=== PATIENT | female | born 1960 | race Caucasian/White ===

== ENCOUNTER 2019-08-13 12:02 | Inpatient (IN) | payer MEDICAID, OTHER ==
[~2019-08-13] VITALS: Ht 160 cm; Wt 69.0 kg
[~2019-08-13 12:02] MED LIST: ALPR0.255; AMLO10TA7 PO; ASPI-556; DYAZIDE
[2019-08-13] MEDS ORDERED: LORA-999 PO (13:09)
[2019-08-13] MEDS ORDERED: AMLO2.5T4 PO (13:09)
[2019-08-13 13:44] LABS: AMPHET/METH SCREEN,URINE NEGATIVE (NEGATIVE); BARBITURATE SCREEN, URINE NEGATIVE (NEGATIVE); BENZODIAZEPINES SCREEN,URINE NEGATIVE (NEGATIVE); CANNABINOID SCREEN,URINE POSITIVE (NEGATIVE); COCAINE SCREEN,URINE NEGATIVE (NEGATIVE); METHADONE SCREEN, URINE NEGATIVE (NEGATIVE); OPIATE SCREEN,URINE NEGATIVE (NEGATIVE)
[2019-08-13 13:45] LABS: PHENCYCLIDINE SCREEN,URINE NEGATIVE (NEGATIVE)
[2019-08-13] MEDS ORDERED: HydrOXYzine PAMOATE 50 MG CAPSULE PO ONE (13:45)
[2019-08-13 13:46] LABS: EOSINOPHILS % (AUTO) 0.4 % (1.0-6.0); HEMATOCRIT 42.9 % (36-46); HEMOGLOBIN 15.2 g/dL (12.0-16.0); LYMPHOCYTES # (AUTO) 1.6 K/uL (1.0-4.8); LYMPHOCYTES % (AUTO) 15.5 % (22.0-44.0); MEAN CORPUSCULAR HEMOGLOBIN 33.8 pg (26.0-34.0); MEAN CORPUSCULAR HGB CONC 35.5 G/dL (31.0-37.0); MEAN CORPUSCULAR VOLUME 95 fL (80-100); MONOCYTES # (AUTO) 0.6 K/uL (0.1-1.0); MONOCYTES % (AUTO) 5.8 % (2.0-9.0); NEUTROPHILS # (AUTO) 7.8 K/uL (1.8-7.7); NEUTROPHILS % (AUTO) 77.3 % (40.0-70.0); PLATELET COUNT (AUTO) 279 K/uL (150-450); RED CELL DISTRIBUTION WIDTH 12.8 % (11.5-14.5)
[2019-08-13 14:05] LABS: ALBUMIN 3.3 g/dL (3.4-5.0); BILIRUBIN,TOTAL 1.2 mg/dL (0.1-1.0); CALCIUM, TOTAL 8.8 mg/dL (8.8-10.5); CREATININE 0.95 mg/dL (0.60-1.30); TOTAL PROTEIN, SERUM 7.1 g/dL (6.4-8.2)
[2019-08-13 14:13] LABS: POTASSIUM 2.9 mmol/L (3.5-5.1)
[2019-08-13] MEDS: POTASSIUM CHLORIDE 20 MEQ ER TABLET PO ONE ×2 (14:27→15:33)
[2019-08-13] MEDS ORDERED: LORazepam 2 MG TABLET PO ONE (15:00)
[2019-08-13] MEDS ORDERED: HALOPERIDOL 5 MG TABLET PO PRN (16:00)
[2019-08-13 18:29] VITALS: BP 104/71
[2019-08-13] MEDS ORDERED: OMEPRAZOLE 20 MG CAPSULE PO PRN (19:45)
[2019-08-13] MEDS ORDERED: ACETAMINOPHEN 325 MG TABLET PO PRN (19:45)
[2019-08-13] MEDS ORDERED: BENZOCAINE/MENTHOL LOZENGE MM PRN (19:45)
[2019-08-13] MEDS ORDERED: ONDANSETRON HCL 4 MG TABLET PO PRN (19:45)
[2019-08-13] MEDS ORDERED: LOPERAMIDE HCL 2 MG CAPSULE PO PRN (19:45)
[2019-08-13] MEDS ORDERED: MAG HYDROX/AL HYDROX/SIMETH ES 30 ML SUSPENSION UDCUP PO PRN (19:45)
[2019-08-13] MEDS ORDERED: DOCUSATE SODIUM 100 MG CAPSULE PO PRN (19:45)
[2019-08-13] MEDS ORDERED: IBUPROFEN 600 MG TABLET PO PRN (19:45)
[2019-08-13] MEDS ORDERED: BACITRACIN 28.4 GM OINTMENT TP PRN (19:45)
[2019-08-13] MEDS ORDERED: ALBUTEROL SULFATE HFA 90 MCG/PUFF 8 GM INHALER IH PRN (19:45)
[2019-08-13] MEDS ORDERED: CloNIDine HCL 0.1 MG TABLET PO PRN (19:45)
[2019-08-13] MEDS ORDERED: PETROLATUM,WHITE 28 GM JELLY TP PRN (19:45)
[2019-08-13] MEDS ORDERED: MAGNESIUM HYDROXIDE SUSPENSION 30 ML UDCUP PO PRN (19:45)
[2019-08-13] MEDS: LORazepam 2 MG TABLET PO PRN (23:25)
[2019-08-13] MEDS: ZOLPIDEM TARTRATE 10 MG TABLET PO PRN (23:25)
[2019-08-14 07:01] LABS: CHOL/HDL RATIO 1.6 (3.9-5.7); POTASSIUM 3.5 mmol/L (3.5-5.1)
[2019-08-14] MEDS ORDERED: INFLUENZA VIRUS VACCINE QVS 2019-20 (3YR+)/PF 60 MCG/0.5 ML SYRINGE IM ONE (07:15)
[2019-08-14] MEDS ORDERED: PNEUMOCOCCAL VACCINE POLYVALENT 0.5 ML VIAL [PPSV23] IM ONE (07:15)
[2019-08-14] MEDS: AmLODIPine BESYLATE 10 MG TABLET PO SCH (08:42)
[2019-08-14] MEDS: LORazepam 2 MG TABLET PO PRN ×2 (08:44→18:24)
[2019-08-14 09:27] VITALS: BP 116/77
[2019-08-14 16:00] VITALS: BP 96/64
[2019-08-14] MEDS: QUEtiapine FUMARATE 200 MG TABLET PO SCH (20:31)
[2019-08-15 08:13] VITALS: BP 93/63
[2019-08-15] MEDS: AmLODIPine BESYLATE 10 MG TABLET PO SCH (08:52)
[2019-08-15 12:25] VITALS: BP 107/84
[2019-08-15] MEDS: LORazepam 2 MG TABLET PO PRN (12:30)
[2019-08-15] MEDS: SODIUM CHLORIDE 1 GM TABLET PO SCH ×2 (13:19→20:00)
[2019-08-15] MEDS: QUEtiapine FUMARATE 200 MG TABLET PO SCH (20:00)
[2019-08-15] MEDS: ZOLPIDEM TARTRATE 10 MG TABLET PO PRN (23:15)
[2019-08-16] MEDS: SODIUM CHLORIDE 1 GM TABLET PO SCH ×3 (08:43→16:47)
[2019-08-16] MEDS: AmLODIPine BESYLATE 10 MG TABLET PO SCH (08:43)
[2019-08-16 09:58] VITALS: BP 104/74
[2019-08-16] MEDS: LORazepam 2 MG TABLET PO PRN ×2 (11:26→16:50)
[2019-08-16 19:50] VITALS: BP 119/84
[2019-08-16] MEDS: QUEtiapine FUMARATE 200 MG TABLET PO SCH (20:25)
[2019-08-17] MEDS: LORazepam 2 MG TABLET PO PRN ×2 (08:40→16:53)
[2019-08-17] MEDS: SODIUM CHLORIDE 1 GM TABLET PO SCH (08:40)
[2019-08-17] MEDS: AmLODIPine BESYLATE 10 MG TABLET PO SCH (08:40)
[2019-08-17 10:13] VITALS: BP 118/78
[2019-08-17 16:54] VITALS: BP 106/54
[2019-08-17] MEDS: QUEtiapine FUMARATE 200 MG TABLET PO SCH (20:05)
[2019-08-18 06:19] LABS: BAND NEUTROPHILS % (MANUAL) 0 % (0-5)
[2019-08-18 06:20] LABS: HEMATOCRIT 39.9 % (36-46); HEMOGLOBIN 13.7 g/dL (12.0-16.0); MEAN CORPUSCULAR HEMOGLOBIN 33.7 pg (26.0-34.0); MEAN CORPUSCULAR HGB CONC 34.3 G/dL (31.0-37.0); MEAN CORPUSCULAR VOLUME 98 fL (80-100); PLATELET COUNT (AUTO) 266 K/uL (150-450); RED BLOOD CELL COUNT(AUTO) 4.07 MIL/uL (4.00-5.20); RED CELL DISTRIBUTION WIDTH 13.5 % (11.5-14.5)
[2019-08-18 06:33] LABS: ANION GAP 8 mmol/L (8-16); CALCIUM, TOTAL 8.6 mg/dL (8.8-10.5); CARBON DIOXIDE 25 mmol/L (22-29); CHLORIDE 106 mmol/L (98-107); CREATININE 0.84 mg/dL (0.60-1.30); GLOMERULAR FILTR. RATE CALC > 60 mL/min (>60); GLUCOSE,RANDOM 92 mg/dL (70-110); POTASSIUM 3.9 mmol/L (3.5-5.1); SODIUM SERUM 139 mmol/L (136-145); UREA NITROGEN, BLOOD 13 mg/dL (7-18)
[2019-08-18 08:10] LABS: EOSINOPHILS % (MANUAL) 1 % (1-6); LYMPHOCYTES % (MANUAL) 18 % (22-44); MONOCYTES % (MANUAL) 7 % (2-9); SEGMENTED NEUTROPHILS % 74 % (40-70)
[2019-08-18 08:50] VITALS: BP 127/66
[2019-08-18] MEDS: AmLODIPine BESYLATE 10 MG TABLET PO SCH (08:50)
[2019-08-18] MEDS: LORazepam 2 MG TABLET PO PRN ×2 (09:01→13:05)
[2019-08-18] MEDS ORDERED: QUET200T PO (13:47)
== END 2019-08-18 14:35 | disposition home or self-care (01) | DRG 754 ==
LOC: EMS 12:03 → 3EC 16:58 → 3EI 08-15 15:36
PROVIDERS: ADMIT Psychiatry & Neurology Psychiatry; ATTEND Psychiatry & Neurology Psychiatry
DX: F32.9 Major depressive disorder, single episode, unspecified (principal); R45.851 Suicidal ideations; E87.6 Hypokalemia; F12.90 Cannabis use, unspecified, uncomplicated; I10 Essential (primary) hypertension; F41.9 Anxiety disorder, unspecified; G47.00 Insomnia, unspecified; K59.00 Constipation, unspecified
CPT/HCPCS: 83735; 84100; 84132; 85007; G0480